=== PATIENT | male | born 1995 | race African-American/Black ===

== ENCOUNTER 2019-11-11 18:56 | Emergency (ER) | payer OTHER ==
[2019-11-11] MEDS ORDERED: Acetaminophen 500 MG TAB ONE (19:23)
--- NOTE | 2019-11-11 19:49 | RAD ---
XR Ankle Rt 3 View STANDARD INDICATION: Right ankle injury COMPARISON: None. FINDINGS: Bones: Intact. Ankle mortise: Symmetric. Talar Dome: Intact. Subtalar joint: Normal. Visualized hindfoot: Normal. Periarticular soft tissues: Normal. IMPRESSION: 1. No acute fracture or subluxation demonstrated.
== END 2019-11-11 20:25 | disposition home or self-care (01) ==
LOC: ERS 18:56
DX: M25.471 Effusion, right ankle (principal); M25.571 Pain in right ankle and joints of right foot; X50.1XXA Overexertion from prolonged static or awkward postures, initial encounter; Y93.67 Activity, basketball; Y99.8 Other external cause status